=== PATIENT | female | born 1945 | race African-American/Black ===

== ENCOUNTER 2024-06-05 02:18 | Observation (INO) | payer MEDICARE, MEDICAID, SELFPAY ==
[2024-06-05] VITALS (54 sets, daily range): BP systolic 115–175; BP diastolic 47–117; PULSE 45–70; RESP 10–24; TEMP 36.4–36.9; O2SAT 93–100; BMI 25.5
--- NOTE | ~2024-06-05 | CT_ITS ---
Clinical Indication: Chest pain, skin wound CT Scan of the Chest with Contrast: Technique: Contiguous sections were acquired throughout the chest after intravenous administration of 75 cc of Omnipaque 350. Dose reduction technique was used on this scan by utilizing automated exposu re control and iterative reconstruction technique. The dose-length product (DLP) was 407.41 mGy-cm. Findings: There is no evidence of any significant mediastinal, hilar or axillary lymphadenopathy. There is no f illing defect in the pulmonary arterial tree to suggest pulmonary embolus. There is no evidence of ao rtic dissection or aneurysm. There is no evidence of pleural or pericardial effusion. The lungs are clear. No pulmonary nodules or infiltrates are noted. Images through the upper abdomen reveal small layering gallstones. There is soft tissue emphysema just superficial to the sternum questionable small tract extending to the skin surface minimal infiltrative changes. 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 There is advanced degenerative spondylosis in the visualized lower cervical spine. Impression: Skin wound and/or sinus tract with soft tissue gas just superficial to the sternum. Correlate with ph ysical exam. No fluid collection or abscess evident. No distinct CT evidence for osteomyelitis. 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 Clear lungs. Cholelithiasis. Reviewed, dictated and finalized at [facility]. [employer] Impression: Skin wound and/or sinus tract with soft tissue gas just superficial to the ster num. Correlate with physical exam. No fluid collection or abscess evident. No d istinct CT evidence for osteomyelitis. 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 Clear lungs. Cholelithiasis.
--- NOTE | 2024-06-05 02:27 | ECG_ITS ---
Test Date: 2024-06-05 02:33:46 Measurements Intervals [place] Rate: 55 P: 72 OR: 212 QRS: -25 QRSD: 98 T: 118 QT: 404 QTc: 390 Interpretive Statements SINUS BRADYCARDIA WITH FIRST DEGREE AV BLOCK POSSIBLE ANTERIOR MYOCARDIAL INFARCTION , OF INDETERMINATE AGE [30 ms Q WAVE IN V3/V4, OR R < 0.2 mV IN V4] No previous ECG available for comparison Electronically Signed On 06-05-2024 18:49:28 METAL RIVET MACHINE OPERATOR by Faith Alvarenga
--- NOTE | 2024-06-05 03:18 | ED_ITS ---
HPI - Wound/Laceration General Chief Complaint: Chest Pain Stated Complaint: chest pain Time Seen by Provider: 06/05/24 02:57 Source: patient, EMS and RN notes reviewed Mode of arrival: EMS History of Present Illness HPI narrative: Patient presents with report of chest pain however upon physical exam she points to a wound located across her chest Which is currently covered by a dressing. She is alert oriented x2 which limits history. She states I want to go home and is in pain/distress. Related Data Home Medications ?Medication ?Instructions ?Recorded ?Confirmed ?Last Taken ?Type acetaminophen 325 mg capsule 325 mg PO Q4H PRN fever or pain 06/05/24 06/05/24 06/04/24 History amlodipine 5 mg tablet 5 mg PO DAILY 06/05/24 06/05/24 06/04/24 History amoxicillin 500 mg tablet 500 mg PO Q8H 06/05/24 06/05/24 06/04/24 History aspirin 81 mg tablet,delayed 81 mg PO DAILY 06/05/24 06/05/24 06/04/24 History release (Adult Aspirin Regimen) brexpiprazole 0.5 mg tablet 0.5 mg PO DAILY 06/05/24 06/05/24 06/04/24 History (Rexulti) buspirone 15 mg tablet 15 mg PO TID 06/05/24 06/05/24 06/04/24 History calcium carb 1,200 mg-mag hydrox 30 ml PO Q6H PRN indigestion 06/05/24 06/05/24 06/04/24 History 270 mg-simeth 80 mg/10 mL oral susp (Mylanta Coat-Cool) dextromethorphan 20 mg-quinidine 1 cap PO DAILY 06/05/24 06/05/24 06/04/24 History 10 mg capsule (Nuedexta) divalproex 125 mg capsule,delayed 250 mg PO BID 06/05/24 06/05/24 06/04/24 History release sprinkle escitalopram oxalate 20 mg tablet 20 mg PO DAILY 06/05/24 06/05/24 06/04/24 History furosemide 20 mg tablet 20 mg PO DAILY 06/05/24 06/05/24 06/04/24 History gabapentin 100 mg capsule 200 mg PO Q12H 06/05/24 06/05/24 06/04/24 History guaifenesin 100 mg/5 mL oral 100 mg PO Q6H PRN congestion 06/05/24 06/05/24 06/04/24 History liquid (Adult Tussin Chest Congestion) hydralazine 50 mg tablet 50 mg PO TID 06/05/24 06/05/24 06/04/24 History insulin glargine-yfgn 100 unit/mL 5 unit subcut QPM 06/05/24 06/05/24 06/04/24 History subcutaneous solution insulin lispro 100 unit/mL See Protocol subcut QID 06/05/24 06/04/24 History subcutaneous pen lactase 3,000 unit tablet (Dairy 3,000 unit PO DAILY 06/05/24 06/05/24 06/04/24 History Relief) latanoprost 0.005 % eye drops 1 drp EACH EYE DAILY 06/05/24 06/05/24 06/04/24 History levothyroxine 100 mcg tablet 100 mcg PO QAM 06/05/24 06/05/24 06/04/24 History lidocaine HCl 2 % mucosal solution 5 ml mucous membrane Q1-2H PRN pain 06/05/24 06/05/24 06/04/24 History (Lidocaine Viscous) metoprolol tartrate 25 mg tablet 25 mg PO BID 06/05/24 06/05/24 06/04/24 History multivitamin (Daily Multi-Vitamin 1 tablet PO DAILY 06/05/24 06/05/24 06/04/24 History tablet) omeprazole 20 mg capsule,delayed 20 mg PO DAILY 06/05/24 06/05/24 06/04/24 History release ondansetron 4 mg disintegrating 4 mg PO Q6H PRN nausea and vomiting 06/05/24 06/05/24 06/04/24 History tablet oxybutynin chloride 5 mg tablet 5 mg PO QHS 06/05/24 06/05/24 06/04/24 History tramadol 50 mg tablet 50 mg PO QHS 06/05/24 06/05/24 06/04/24 History Allergies Allergy/AdvReac Type Severity Reaction Status Date / Time glyburide Allergy Intermediate hives Verified 06/05/24 15:56 Pyrazolones Allergy Intermediate Hives Verified 06/05/24 15:56 salicylates Allergy Mild Hives Verified 06/05/24 15:56 nsaids Allergy Intermediate Hives Uncoded 06/05/24 15:56 [facility] Past Medical History Medical History Hypothyroidism DM2 (diabetes mellitus, type 2) Incontinence Cholestasis Pulmonary hypertension Myocardial infarction Hyperlipidemia Essential (primary) hypertension Type 2 diabetes mellitus with hyperglycemia Other dental procedure status tooth extraction Atherosclerotic heart disease of [place] coronary artery without angina pectoris Surgical History Surgical History S/P CABG x 2 Social History Social History Social History: Full Code per alf documentation Smoking status: Unknown if ever smoked Alcohol intake: unknown Substance use: unknown Living arrangements: alf Additional living arrangements comments: [facility] [place] Spiritual care concerns: No (Hinduism) Exam 2 Narrative: GENERAL: Well-appearing, well-nourished, in mild acute distress. HEAD: Normocephalic, atraumatic. EYES: Non injected, non icteric ENT: Nares clear, no rhinorrhea or epistaxis. Dry mucous membranes. NECK: Supple. CHEST: Speaking in full sentences. No respiratory distress. Large pendulous breasts HEART: Bradycardic rate and rhythm. . ABDOMEN: Soft, nondistended. EXTREMITIES: Normal range of motion. No lower extremity edema. SKIN: Warm, dry. Large wound along superficial mid chest overlying sternum with deep sinus tract cranial/caudally. wound extends more superficially along medial bilateral breath as well as into inframammary crease. Wound is malodorous and with drainage. Unstageable. NEURO: No focal deficits. Alert and oriented to self. Course Vital Signs Vital signs: Vital Signs Temperature 98.5 F 06/05/24 02:15 Pulse Rate 57 L 06/05/24 02:15 Respiratory Rate 20 06/05/24 02:15 Blood Pressure 152/66 H 06/05/24 02:15 Pulse Oximetry 99 06/05/24 02:15 Oxygen Delivery Room Air 06/05/24 02:15 Temperature 97.8 F 06/06/24 06:00 Pulse Rate 55 L 06/06/24 08:34 Respiratory Rate 20 06/06/24 06:00 Blood Pressure 144/47 H 06/06/24 06:00 Pulse Oximetry 99 06/06/24 06:00 Oxygen Delivery Room Air 06/05/24 20:00 MDM - Wound/Laceration MDM Narrative Medical decision making narrative: patient presents report of chest pain however this does not appear to be cardiac in nature but rather she points directly to a wound overlying her anterior chest at the midsternum which is draining malodorous fluid and has a deep tract renally cause/caudally with extension along medial aspect of bilateral breasts as well as in the inframammary crease. In the emergency department she is afebrile with vital signs that show mild bradycardia and slight elevated diastolic blood pressure. Normocytic anemia. No prior for comparison. Wound cultures obtained. patient given IV fluids as well as analgesic medication. CT imaging obtained which does demonstrate extension to bony structures and is without evidence of contiguous osteomyelitis. Discussed with on-call hospitalist Dr Giron who requests consultation with general surgery. Discussed with etch operator semiconductor wafers surgeon Dr Mane who states can be consulted. Inquires about if her diabetes is well controlled or not. No / limited history on this patient so HA1C ordered. Discussed again with Dr Giron. Patient will be to a gen med/surg floor. Lab Data Attestation: I reviewed the patient's lab results. 06/06/24 06:49 06/06/24 06:49 Labs: Lab Results 06/05/24 Range/Units 04:01 WBC 7.1 (4.5-10.0) K/mm3 RBC 3.53 L (4.2-5.4) M/mm3 Hgb 10.7 L (12.0-15.0) g/dL Hct 32.9 L (37.0-47.0) % MCV 93.2 (80-100) fl MCH 30.3 (26-34) pg MCHC 32.5 (32-36) g/dl RDW 11.8 (11.5-14.5) % Plt Count 219 (150-375) k/mm3 MPV 11.2 H (7.4-10.4) fl Immature Gran % (Auto) 0.3 (0-0.5) % Neut % (Auto) 61.3 (45.5-73.1) % Lymph % (Auto) 28.7 (18.3-44.2) % [place] % (Auto) 8.5 (2.6-8.5) % Eos % (Auto) 0.8 (0-4.4) % Baso % (Auto) 0.4 (0.2-1.2) % Lymph # (Auto) 2.04 (0.9-3.2) K/mm3 [place] # (Auto) 0.6 (0.1-0.6) K/mm3 Eos # (Auto) 0.1 (0-0.3) K/mm3 Baso # (Auto) 0.0 (0.0-0.1) K/mm3 Abs Immat Gran (auto) 0.02 (0.00-0.031) K/mm3 Absolute Neuts (auto) 4.4 (1.3-6.7) K/mm3 Absolute Nucleated RBC 0.000 (0.0-0.012) K/mm3 Nucleated RBC % 0.0 (0.0-0.2) % Sodium 138 (137-145) mmol/L Potassium 3.0 L (3.4-5.0) mmol/L Chloride 110 H (98-107) mmol/L Carbon Dioxide 26 (22-30) mmol/L Anion Gap 2 L (4-12) mmol/L BUN 8 (7-17) mg/dL Creatinine 0.50 L (0.7-1.0) mg/dL Estim Creat Clear Calc 84 ml/min Estimated GFR > 60 (59 - ) Glucose 157 H (65-110) mg/dL Lactic Acid 1.7 (0.7-2.0) mmol/L Calcium 8.0 L (8.4-10.2) mg/dL Magnesium 1.8 (1.6-2.3) mg/dL Total Bilirubin 0.7 (0.2-1.3) mg/dL AST 17 (14-36) U/L ALT 9 (6-35) U/L Alkaline Phosphatase 68 (38-126) U/L Total Protein 7.0 (6.3-8.2) g/dL Albumin 3.1 L (3.5-5.1) g/dL Imaging Data Radiologist's impression: Skin wound and/or sinus tract with soft tissue gas just superficial to the sternum. Correlate with physical exam. No fluid collection or abscess evident. No distinct CT evidence for osteomyelitis. 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 Clear lungs. Cholelithiasis. ECG Data EKG #1: Attestation: I personally reviewed and interpreted this ECG as follows: ECG completion date: 06/05/24 ECG completion time: 02:33 Interpretation: Sinus bradycardia at a rate of 55 beats per minute. IL interval 212. QRS 98. QT/ QTC 404/394. Discharge Plan Discharge Clinical Impression: Wound of sternal region, Normocytic anemia, Hypokalemia Patient Disposition: Still a Patient Condition: Guarded Prognosis
[2024-06-05] MEDS: Please add drug allergy info to patient profile. 1 EACH XX (03:57)
[2024-06-05] MEDS: SODIUM CHLORIDE 0.9% IV 1,000 ML 999 ML IV CONT (03:58)
[2024-06-05] MEDS: MORPHINE SULFATE (*CRX) 4 MG/ML INJ IV PUSH (03:59)
[2024-06-05 04:09] LABS: Basophils Percent Auto 0.4 % (0.2-1.2); Eosinophils Absolute Auto 0.1 K/mm3 (0-0.3); Eosinophils Percent Auto 0.8 % (0-4.4); Hematocrit 32.9 % (37.0-47.0); Hemoglobin 10.7 g/dL (12.0-15.0); Immature Granulocyte Absolute 0.02 K/mm3 (0.00-0.031); Immature Granulocyte Percent A 0.3 % (0-0.5); Lymphocytes Absolute Auto 2.04 K/mm3 (0.9-3.2); Lymphocytes Percent Auto 28.7 % (18.3-44.2); Mean Corpuscular HGB Conc 32.5 g/dl (32-36); Mean Corpuscular Hemoglobin 30.3 pg (26-34); Mean Corpuscular Volume 93.2 fl (80-100); Mean Platelet Volume 11.2 fl (7.4-10.4); Monocytes Absolute Auto 0.6 K/mm3 (0.1-0.6); Monocytes Percent Auto 8.5 % (2.6-8.5); Neutrophils Absolute Auto 4.4 K/mm3 (1.3-6.7); Neutrophils Percent Auto 61.3 % (45.5-73.1); Platelet Count Result 219 k/mm3 (150-375); Red Blood Count 3.53 M/mm3 (4.2-5.4); Red Cell Distribution Width 11.8 % (11.5-14.5); White Blood Count 7.1 K/mm3 (4.5-10.0)
[2024-06-05 04:26] LABS: Alanine Aminotransferase 9 U/L (6-35); Albumin Level 3.1 g/dL (3.5-5.1); Alkaline Phosphatase 68 U/L (38-126); Anion Gap 2 mmol/L (4-12); Aspartate Amino Transferase 17 U/L (14-36); Bilirubin,Total 0.7 mg/dL (0.2-1.3); Blood Urea Nitrogen 8 mg/dL (7-17); Carbon Dioxide 26 mmol/L (22-30); Chloride 110 mmol/L (98-107); Estimated CRCL calculation 84 ml/min; Estimated Glomerular Filt Rate > 60; Glucose 157 mg/dL (65-110); Lactic Acid Reflex 1.7 mmol/L (0.7-2.0); Sodium 138 mmol/L (137-145)
--- NOTE | 2024-06-05 04:54 | PC.NURSE ---
pure wick placed after pt returned from ct. Lab contacted for magnesium add on.
[2024-06-05 05:03] LABS: Magnesium 1.8 mg/dL (1.6-2.3)
[2024-06-05] MEDS: KCL 20 MEQ/SW 100 ML 100 ML 50 MEQ IVPB (05:27)
[2024-06-05] MEDS: POTASSIUM BICARBONATE 25 MEQ TABEF 50 MEQ PO (05:27)
[2024-06-05] MEDS: SODIUM CHLORIDE 0.9% IV 1,000 ML 100 ML (05:27)
[2024-06-05] MEDS: VANCOMYCIN 1,500 MG/NS 500 ML 1,500 MG/500 ML BAG 250 MG IVPB ×2 (08:07→19:35)
--- NOTE | 2024-06-05 08:45 | ADMGEN ---
This patient, Chely Joy, was admitted to -. Patient/family oriented to hospital policies and general routines including ID bracelet, bed and alarms, visiting hours, pain management, procedures, bathroom and other care routines, personal items, smoking policy, room service/diet, and visiting hours. Information on how to activate the Rapid Response Team has been discussed. Patient/Family are encouraged to report perceived risks to care and to ask questions if they do not understand what they are told or what they should do.
--- NOTE | 2024-06-05 09:54 | PC.NURSE ---
JOSE ELIAS Zurita at [facility] at [facility], notified per telephone of request for medical records and current medication list. Fax number provided.
--- NOTE | 2024-06-05 12:13 | P.HP_ITS ---
H&P: HPI History of Present Illness Date/Time: 06/05/24 12:13 Chief Complaint: Chest Pain Narrative: 79 y/o F presents here with chest pain with PMH of angina, CABG x2, HLD, HTN, myocardial infarction, CAD, pulmonary hypertension, cholestasis, incontinence, arthritis, type 2 diabetes, hypothyroidism, and glaucoma. The patient presents here from [facility] via EMS for further evaluation of chest pain. The patient has a wound/ulceration to her sternum measuring approximately 3 x 4 cm, shallow. Wound initially developed after she had heart surgery at [facility]. The patient reports this has been present for the past 8 years. She reports no recent change to the wound. She reports the chest pain felt different than her usual discomfort with her wound. When asked to further describe the pain she is now stating that she didn't have chest pain and she was transported here because she had clear drainage from her eyes, none present. Now stating she feels improved and fine like she could go home. Denies fever, chills, body aches, shortness of breath, diaphoresis, nausea/vomiting. Patient is poor historian, currently A/Ox self, place. Incorrect year given and poor/unreliable situational recall. Initial VS at presentation: 98.5? F, HR 57, RR 20, 152/66, and 99% on RA. ED workup showed: No leukocytosis, hemoglobin 10.7 (no previous available for comparison), potassium 3.0, creatinine 0.5 and GFR >60, glucose 157, A1c 7.0, lactic 1.7. Chest CT showed a skin wound and/or sinus tract with soft tissue gas just superficial to the sternum, no fluid collection or abscess evident, no distinct evidence of osteomyelitis. Review of Systems Review of Systems: All systems reviewed & are unremarkable except as noted in HPI and below (Patient unreliable historian) [facility] Past Medical History Medical History Hypothyroidism DM2 (diabetes mellitus, type 2) Incontinence Cholestasis Pulmonary hypertension Myocardial infarction Hyperlipidemia Essential (primary) hypertension Type 2 diabetes mellitus with hyperglycemia Other dental procedure status tooth extraction Atherosclerotic heart disease of [place] coronary artery without angina pectoris Surgical History Surgical History S/P CABG x 2 Social History Social History Social History: Full Code per care home documentation Smoking status: Unknown if ever smoked Alcohol intake: unknown Substance use: unknown Living arrangements: care home Additional living arrangements comments: [facility] [place] Spiritual care concerns: No (Moravian) Meds Home Medications and Allergies Home Medications ?Medication ?Instructions ?Recorded ?Confirmed ?Type acetaminophen 325 mg capsule 325 mg PO Q4H PRN fever or pain 06/05/24 06/05/24 History amlodipine 5 mg tablet 5 mg PO DAILY 06/05/24 06/05/24 History amoxicillin 500 mg tablet 500 mg PO Q8H 06/05/24 06/05/24 History aspirin 81 mg tablet,delayed 81 mg PO DAILY 06/05/24 06/05/24 History release (Adult Aspirin Regimen) brexpiprazole 0.5 mg tablet 0.5 mg PO DAILY 06/05/24 06/05/24 History (Rexulti) buspirone 15 mg tablet 15 mg PO TID 06/05/24 06/05/24 History calcium carb 1,200 mg-mag hydrox 30 ml PO Q6H PRN indigestion 06/05/24 06/05/24 History 270 mg-simeth 80 mg/10 mL oral susp (Mylanta Coat-Cool) dextromethorphan 20 mg-quinidine 1 cap PO DAILY 06/05/24 06/05/24 History 10 mg capsule (Nuedexta) divalproex 125 mg capsule,delayed 250 mg PO BID 06/05/24 06/05/24 History release sprinkle escitalopram oxalate 20 mg tablet 20 mg PO DAILY 06/05/24 06/05/24 History furosemide 20 mg tablet 20 mg PO DAILY 06/05/24 06/05/24 History gabapentin 100 mg capsule 200 mg PO Q12H 06/05/24 06/05/24 History guaifenesin 100 mg/5 mL oral 100 mg PO Q6H PRN congestion 06/05/24 06/05/24 History liquid (Adult Tussin Chest Congestion) hydralazine 50 mg tablet 50 mg PO TID 06/05/24 06/05/24 History insulin glargine-yfgn 100 unit/mL 5 unit subcut QPM 06/05/24 06/05/24 History subcutaneous solution insulin lispro 100 unit/mL See Protocol subcut QID 06/05/24 History subcutaneous pen lactase 3,000 unit tablet (Dairy 3,000 unit PO DAILY 06/05/24 06/05/24 History Relief) latanoprost 0.005 % eye drops 1 drp EACH EYE DAILY 06/05/24 06/05/24 History levothyroxine 100 mcg tablet 100 mcg PO QAM 06/05/24 06/05/24 History lidocaine HCl 2 % mucosal solution 5 ml mucous membrane Q1-2H PRN pain 06/05/24 06/05/24 History (Lidocaine Viscous) metoprolol tartrate 25 mg tablet 25 mg PO BID 06/05/24 06/05/24 History multivitamin (Daily Multi-Vitamin 1 tablet PO DAILY 06/05/24 06/05/24 History tablet) omeprazole 20 mg capsule,delayed 20 mg PO DAILY 06/05/24 06/05/24 History release ondansetron 4 mg disintegrating 4 mg PO Q6H PRN nausea and vomiting 06/05/24 06/05/24 History tablet oxybutynin chloride 5 mg tablet 5 mg PO QHS 06/05/24 06/05/24 History tramadol 50 mg tablet 50 mg PO QHS 06/05/24 06/05/24 History Allergies Allergy/AdvReac Type Severity Reaction Status Date / Time glyburide Allergy Intermediate hives Verified 06/05/24 15:56 Pyrazolones Allergy Intermediate Hives Verified 06/05/24 15:56 salicylates Allergy Mild Hives Verified 06/05/24 15:56 nsaids Allergy Intermediate Hives Uncoded 06/05/24 15:56 Vital Signs Vital Signs - 24 hr 06/05/24 02:15 06/05/24 02:15 06/05/24 02:15 Temperature 98.5 F Pulse Rate 57 L 57 L Respiratory Rate 20 Blood Pressure 152/66 H Pulse Oximetry 99 100 Oxygen Delivery Room Air Room Air 06/05/24 02:15 06/05/24 02:23 06/05/24 02:30 Temperature Pulse Rate 57 L 57 L 59 L Respiratory Rate 14 15 18 Blood Pressure 140/58 L Pulse Oximetry 100 99 99 Oxygen Delivery 06/05/24 02:31 06/05/24 02:45 06/05/24 02:46 Temperature Pulse Rate 58 L 56 L 54 L Respiratory Rate 19 14 15 Blood Pressure 170/70 H 163/61 H Pulse Oximetry 100 98 98 Oxygen Delivery 06/05/24 03:00 06/05/24 03:01 06/05/24 03:15 Temperature Pulse Rate 55 L 54 L 57 L Respiratory Rate 12 13 10 L Blood Pressure 147/60 H Pulse Oximetry 98 Oxygen Delivery 06/05/24 03:18 06/05/24 03:20 06/05/24 03:20 Temperature Pulse Rate 57 L 54 L Respiratory Rate 18 Blood Pressure 140/58 L Pulse Oximetry 100 Oxygen Delivery Room Air 06/05/24 03:30 06/05/24 03:31 06/05/24 03:45 Temperature Pulse Rate 59 L 55 L 45 L Respiratory Rate 16 24 H 10 L Blood Pressure 156/53 H Pulse Oximetry 100 100 100 Oxygen Delivery 06/05/24 03:46 06/05/24 04:00 06/05/24 04:01 Temperature Pulse Rate 56 L 52 L 56 L Respiratory Rate 17 13 14 Blood Pressure 134/59 L 156/63 H Pulse Oximetry 100 100 100 Oxygen Delivery 06/05/24 04:15 06/05/24 04:17 06/05/24 04:50 Temperature Pulse Rate 48 L 47 L 67 Respiratory Rate 13 12 17 Blood Pressure 156/59 H 157/117 H Pulse Oximetry 98 99 98 Oxygen Delivery 06/05/24 04:51 06/05/24 05:00 06/05/24 05:01 Temperature Pulse Rate 68 66 65 Respiratory Rate 12 11 L 16 Blood Pressure 115/53 L Pulse Oximetry 100 Oxygen Delivery 06/05/24 05:15 06/05/24 05:16 06/05/24 05:30 Temperature Pulse Rate 62 56 L 65 Respiratory Rate 15 11 L 20 Blood Pressure 127/47 L Pulse Oximetry 98 100 98 Oxygen Delivery 06/05/24 05:31 06/05/24 05:45 06/05/24 05:47 Temperature Pulse Rate 60 56 L 49 L Respiratory Rate 15 14 17 Blood Pressure 137/52 L 148/86 H Pulse Oximetry 94 Oxygen Delivery 06/05/24 06:00 06/05/24 06:02 06/05/24 06:15 Temperature Pulse Rate 56 L 56 L 56 L Respiratory Rate 16 17 15 Blood Pressure 135/60 Pulse Oximetry Oxygen Delivery 06/05/24 06:16 06/05/24 06:17 06/05/24 06:30 Temperature Pulse Rate 58 L 55 L 56 L Respiratory Rate 14 16 Blood Pressure 139/113 H Pulse Oximetry Oxygen Delivery 06/05/24 06:31 06/05/24 06:45 06/05/24 06:46 Temperature Pulse Rate 50 L 54 L 54 L Respiratory Rate 14 15 20 Blood Pressure 150/58 H 145/62 H Pulse Oximetry Oxygen Delivery 06/05/24 07:00 06/05/24 07:01 06/05/24 07:15 Temperature Pulse Rate 60 61 51 L Respiratory Rate 12 12 14 Blood Pressure 160/65 H Pulse Oximetry Oxygen Delivery 06/05/24 07:16 06/05/24 07:30 06/05/24 07:31 Temperature Pulse Rate 55 L 62 61 Respiratory Rate 12 19 23 H Blood Pressure 146/69 H 167/75 H Pulse Oximetry 96 95 Oxygen Delivery 06/05/24 07:45 06/05/24 07:46 06/05/24 08:00 Temperature Pulse Rate 55 L 60 47 L Respiratory Rate 11 L 13 12 Blood Pressure 175/68 H Pulse Oximetry 99 99 Oxygen Delivery 06/05/24 08:01 06/05/24 08:15 06/05/24 08:17 Temperature Pulse Rate 47 L 54 L 59 L Respiratory Rate 14 15 18 Blood Pressure 165/62 H 167/56 H Pulse Oximetry 98 98 Oxygen Delivery 06/05/24 09:24 06/05/24 10:08 Temperature Pulse Rate Respiratory Rate Blood Pressure Pulse Oximetry 93 Oxygen Delivery Room Air Room Air Exam Narrative: Hyperactive BS in all quads. no edema. old scarring to sternum. Const: Other: , obese body habitus, female, nontoxic appearance, modestly disheveled HENMT: Face/Nose/Sinus: Normal nares present Mouth: Yes moist mucous membranes Eyes: General: appearance normal, both eyes and all related structures Sclera: sclerae normal Pupils: Equal, round and reactive pupils present EOM: EOMs intact bilaterally Chest: Other: Open wound to chest with surrounding hypopigmentation, see skin assessment. Resp: Effort & Inspection: normal respiratory effort Auscultation: clear to auscultation bilaterally Cardio: Rate: regular rate Rhythm: regular rhythm Other: S1-S2 present without murmur, rub, ectopy GI: Other: Abdomen soft, nondistended, nontender. Hyperactive bowel sounds in all quadrants. Skin: General skin exam: normal color and no rashes or lesions noted Wounds: wounds noted Other: Small open wound to midsternal chest just distal to medial breast fold. Surrounding hypopigmentation. Measuring approximately 3 x 4 cm, shallow. New dressing in place, patent. No overt odor. Neuro: Speech: normal speech Sensory Exam: normal sensation Other: Patient moving all extremities. A&O times self, place. Incorrect year provided and poor situational history given. Extrem: General: normal to inspection Psych: Mental Status: mental status grossly normal Affect: normal affect Other: Fair to poor insight and judgment, pleasant H&P: Results Labs Labs: Short CBC 06/05/24 Range/Units 04:01 WBC 7.1 (4.5-10.0) K/mm3 Hgb 10.7 L (12.0-15.0) g/dL Hct 32.9 L (37.0-47.0) % Plt Count 219 (150-375) k/mm3 BMP 06/05/24 04:01 Sodium 138 Potassium 3.0 L Chloride 110 H Carbon Dioxide 26 BUN 8 Creatinine 0.50 L Glucose 157 H Calcium 8.0 L Liver Function 06/05/24 Range/Units 04:01 Total Bilirubin 0.7 (0.2-1.3) mg/dL AST 17 (14-36) U/L ALT 9 (6-35) U/L Alkaline Phosphatase 68 (38-126) U/L Albumin 3.1 L (3.5-5.1) g/dL Assessment and Plan Assessment and plan (1) Wound of sternal region: Code(s): S21.109A - Unspecified open wound of unspecified front wall of thorax without penetration into thoracic cavity, initial encounter Status: Acute Assessment and Plan: - did not meet SIRS criteria. Blood cultures obtained in ED, follow. - Chest CT 1. Skin wound and/or sinus tract with soft tissue gas just superficial to the sternum. Correlate with physical exam. No fluid collection or abscess evident. No distinct CT evidence for osteomyelitis. 2. 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 3. Clear lungs. 4. Cholelithiasis. - WBC 7.1, lactic 1.7 - wound culture and fungal culture obtained, follow - started on vancomycin on 06/05 - general surgery consulted, awaiting formal recs - wound RN consulted - analgesics prn - trend wbc (2) Chest pain: Qualifiers: Chest pain type: unspecified Qualified Code(s): R07.9 - Chest pain, unspecified Code(s): R07.9 - Chest pain, unspecified Status: Acute Assessment and Plan: Initially reporting chest pain, now denying this is why she was brought into the hospital. Does have chronic wound to midsternal chest, present for the past 8 years, see above. No active chest pain at this time. - chest CT performed, CT read above - EKG, initial: Sinus bradycardia with first-degree AV block, possible anterior AL of indeterminate age, rate 55. Awaiting formal read - trend troponins (3) Normocytic anemia: Code(s): D64.9 - Anemia, unspecified Status: Acute Assessment and Plan: - Hgb 10.7, no previous available for comparison - MCV and MCHC within normal limits - add iron, TIBC, ferritin, B12, folic acid, and TSH - transfuse if <7 - trend (4) Hypokalemia: Code(s): E87.6 - Hypokalemia Status: Acute Assessment and Plan: - K 3.0 - initial repletion with: 50 p.o. potassium bicarbonate, 20 IVPB of KCl - monitor (5) DM2 (diabetes mellitus, type 2): Qualifiers: Diabetes mellitus custodial insulin use: with manager long term care use Diabetes mellitus complication status: without complication Qualified Code(s): E11.9 - Type 2 diabetes mellitus without complications; Z79.4 - rodent exterminator (current) use of insulin Code(s): E11.9 - Type 2 diabetes mellitus without complications Status: Chronic Assessment and Plan: - hypoglycemia protocol - POC blood glucose ACHS - home medication: Lantus 5u HS - correct regimen ordered - low dose TIDWM, based off BMI - A1C 7.0 on 06/05/2024 (6) Essential (primary) hypertension: Code(s): I10 - Essential (primary) hypertension Status: Chronic Assessment and Plan: - chronic, currently 167/56 - continue home medications: amlodipine 5 mg daily, hydralazine 50 mg t.i.d., metoprolol 25 mg BID - monitor Plan Diet: Diabetic GI Prophylaxis: Not currently indicated DVT Prophylaxis: Lovenox subQ Lines: Peripheral Code Status: Full code Quality VTE Prophylaxis VTE prophylaxis: pharmacologic ordered Hospitalist MIPS Advance Care Plan I have confirmed that the patient's Advanced Care Plan is present, code status is documented, or surrogate decision maker is listed in patient medical record.: Yes Medication Reconciliation I have utilized all available resources to obtain, update and review the patients current medications (includes all prescriptions, OTC, herbals, cannabis, and nutritional supplements).: Yes
[2024-06-05] MEDS: amLODIPine BESYLATE 5 MG TABLET PO (13:02)
[2024-06-05] MEDS: GABAPENTIN 100 MG CAPSULE 200 MG PO ×2 (13:03→20:25)
[2024-06-05] MEDS: hydrALAZINE HCL 50 MG TABLET PO ×2 (13:04→16:20)
[2024-06-05] MEDS: busPIRone HCL 5 MG TABLET 15 MG PO ×2 (13:04→16:20)
[2024-06-05] MEDS: LATANOPROST 0.005% OP SOLN 2.5 ML BTL 1 DROP EACH EYE (13:22)
--- NOTE | 2024-06-05 13:45 | P.CONGS_ITS ---
Assessment and Plan Assessment and plan (1) Wound of sternal region: Code(s): S21.109A - Unspecified open wound of unspecified front wall of thorax without penetration into thoracic cavity, initial encounter Status: Acute Assessment and Plan: The patient has a very chronic appearing mid sternal wound that is beneath the skin fold of her breasts. It is unclear how this wound originated, but it has clearly been present for some time. There is some granulating tissue and epithelialization around the edges of the wound. This wound does not appear infected. There is no redness around the wound and no purulent drainage on exam. There is no indication for surgical intervention. We would recommend to continue local wound care with packing dressing changes. The packing may be slightly difficult, as you have to hold up both breasts to properly pack the large area of undermining. This may need to be taught to staff at the facility prior to discharge. I have called her emergency contact, but this is an appointed guardian as she is a dunn of the [facility]. They were unable to provide any surgical history of additional information in regards to the wound. I have also tried calling [facility] for additional history but was unsuccessful in reaching any staff that could provide information. (2) Chest pain: Code(s): R07.9 - Chest pain, unspecified Status: Acute Assessment and Plan: This was the reason the patient was brought to the ED. Difficult to obtain details of her chest pain due to her dementia. She is no longer complaining of any chest pain, although it seems her wound is slightly tender. Management per Hospitalist. (3) DM2 (diabetes mellitus, type 2): Code(s): E11.9 - Type 2 diabetes mellitus without complications Status: Chronic (4) Essential (primary) hypertension: Code(s): I10 - Essential (primary) hypertension Status: Chronic (5) Hypokalemia: Code(s): E87.6 - Hypokalemia Status: Acute Assessment and Plan: Potassium 3.0 on admission and was replaced in the ED. (6) Normocytic anemia: Code(s): D64.9 - Anemia, unspecified Status: Acute Assessment and Plan: Hgb 10.7 on admission with no other labs for comparison in our EMR. Management per Hospitalist. Plan I have discussed the patient's case and plan of care with Dr. Mane. Thank you for allowing us to see the patient in consultation. History of Present Illness Consult details Consult date: 06/05/24 Reason for consult: other (Chest wound) Requesting physician: Oksana Flannery MD Narrative: This is an 79-year-old female with PMH of DM2, CAD, HTN, hypothyroidism, and dementia, who resides at [facility]. She is a poor historian due to her dementia, therefore information is obtained by review of the electronic medical record. We have been asked to see the patient in surgical consultation for a chest wound. She was apparently brought into the ED via EMS from the skilled nursing due to chest pain. Labs showed no leukocytosis and lactic acid 1.7. Hemoglobin A1c 7.0. She was found to have a wound on her midsternal chest. She had a chest CT that showed skin wound and/or sinus tract with soft tissue gas just superficial to the sternum, no fluid collection or abscess evident, no distinct CT evidence for osteomyelitis, and incidental findings of cholelithiasis. The patient was admitted. She is now seen on the medical floor with no family at the bedside. I contacted her emergency contact, which is her appointed guardian as she is a dunn of the [facility]. The guardian was recently a pointed to the patient and is unable to verify any surgical history in regards to her chest wound. CT scan showed no sternotomy wires. Wound Care has also been consulted and is at the bedside seeing the patient at the time of my exam with Dr. Mane. The patient is denying any pain at this time. 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 Surgical History Surgical History S/P CABG x 2 Social History Social History Social History: Full Code per skilled nursing documentation Smoking status: Unknown if ever smoked Alcohol intake: unknown Substance use: unknown Living arrangements: skilled nursing Additional living arrangements comments: [facility] Spiritual care concerns: No (Church) Meds Home Medications and Allergies Home Medications ?Medication ?Instructions ?Recorded ?Confirmed ?Type acetaminophen 325 mg capsule 325 mg PO Q4H PRN fever or pain 06/05/24 06/05/24 History amlodipine 5 mg tablet 5 mg PO DAILY 06/05/24 06/05/24 History amoxicillin 500 mg tablet 500 mg PO Q8H 06/05/24 06/05/24 History aspirin 81 mg tablet,delayed 81 mg PO DAILY 06/05/24 06/05/24 History release (Adult Aspirin Regimen) brexpiprazole 0.5 mg tablet 0.5 mg PO DAILY 06/05/24 06/05/24 History (Rexulti) buspirone 15 mg tablet 15 mg PO TID 06/05/24 06/05/24 History calcium carb 1,200 mg-mag hydrox 30 ml PO Q6H PRN indigestion 06/05/24 06/05/24 History 270 mg-simeth 80 mg/10 mL oral susp (Mylanta Coat-Cool) dextromethorphan 20 mg-quinidine 1 cap PO DAILY 06/05/24 06/05/24 History 10 mg capsule (Nuedexta) divalproex 125 mg capsule,delayed 250 mg PO BID 06/05/24 06/05/24 History release sprinkle escitalopram oxalate 20 mg tablet 20 mg PO DAILY 06/05/24 06/05/24 History furosemide 20 mg tablet 20 mg PO DAILY 06/05/24 06/05/24 History gabapentin 100 mg capsule 200 mg PO Q12H 06/05/24 06/05/24 History guaifenesin 100 mg/5 mL oral 100 mg PO Q6H PRN congestion 06/05/24 06/05/24 History liquid (Adult Tussin Chest Congestion) hydralazine 50 mg tablet 50 mg PO TID 06/05/24 06/05/24 History insulin glargine-yfgn 100 unit/mL 5 unit subcut QPM 06/05/24 06/05/24 History subcutaneous solution insulin lispro 100 unit/mL See Protocol subcut QID 06/05/24 History subcutaneous pen lactase 3,000 unit tablet (Dairy 3,000 unit PO DAILY 06/05/24 06/05/24 History Relief) latanoprost 0.005 % eye drops 1 drp EACH EYE DAILY 06/05/24 06/05/24 History levothyroxine 100 mcg tablet 100 mcg PO QAM 06/05/24 06/05/24 History lidocaine HCl 2 % mucosal solution 5 ml mucous membrane Q1-2H PRN pain 06/05/24 06/05/24 History (Lidocaine Viscous) metoprolol tartrate 25 mg tablet 25 mg PO BID 06/05/24 06/05/24 History multivitamin (Daily Multi-Vitamin 1 tablet PO DAILY 06/05/24 06/05/24 History tablet) omeprazole 20 mg capsule,delayed 20 mg PO DAILY 06/05/24 06/05/24 History release ondansetron 4 mg disintegrating 4 mg PO Q6H PRN nausea and vomiting 06/05/24 06/05/24 History tablet oxybutynin chloride 5 mg tablet 5 mg PO QHS 06/05/24 06/05/24 History tramadol 50 mg tablet 50 mg PO QHS 06/05/24 06/05/24 History Allergies Allergy/AdvReac Type Severity Reaction Status Date / Time glyburide Allergy Intermediate Rash Verified 06/05/24 03:56 Pyrazolones Allergy Intermediate Hives Verified 06/05/24 03:56 salicylates Allergy Mild Hives Verified 06/05/24 03:56 nsaids Allergy Intermediate Hives Uncoded 06/05/24 03:56 Vital Signs Vital Signs - 24 hr 06/05/24 02:15 06/05/24 02:15 06/05/24 02:15 Temperature 98.5 F Pulse Rate 57 L 57 L Respiratory Rate 20 Blood Pressure 152/66 H Pulse Oximetry 99 100 Oxygen Delivery Room Air Room Air 06/05/24 02:15 06/05/24 02:23 06/05/24 02:30 Temperature Pulse Rate 57 L 57 L 59 L Respiratory Rate 14 15 18 Blood Pressure 140/58 L Pulse Oximetry 100 99 99 Oxygen Delivery 06/05/24 02:31 06/05/24 02:45 06/05/24 02:46 Temperature Pulse Rate 58 L 56 L 54 L Respiratory Rate 19 14 15 Blood Pressure 170/70 H 163/61 H Pulse Oximetry 100 98 98 Oxygen Delivery 06/05/24 03:00 06/05/24 03:01 06/05/24 03:15 Temperature Pulse Rate 55 L 54 L 57 L Respiratory Rate 12 13 10 L Blood Pressure 147/60 H Pulse Oximetry 98 Oxygen Delivery 06/05/24 03:18 06/05/24 03:20 06/05/24 03:20 Temperature Pulse Rate 57 L 54 L Respiratory Rate 18 Blood Pressure 140/58 L Pulse Oximetry 100 Oxygen Delivery Room Air 06/05/24 03:30 06/05/24 03:31 06/05/24 03:45 Temperature Pulse Rate 59 L 55 L 45 L Respiratory Rate 16 24 H 10 L Blood Pressure 156/53 H Pulse Oximetry 100 100 100 Oxygen Delivery 06/05/24 03:46 06/05/24 04:00 06/05/24 04:01 Temperature Pulse Rate 56 L 52 L 56 L Respiratory Rate 17 13 14 Blood Pressure 134/59 L 156/63 H Pulse Oximetry 100 100 100 Oxygen Delivery 06/05/24 04:15 06/05/24 04:17 06/05/24 04:50 Temperature Pulse Rate 48 L 47 L 67 Respiratory Rate 13 12 17 Blood Pressure 156/59 H 157/117 H Pulse Oximetry 98 99 98 Oxygen Delivery 06/05/24 04:51 06/05/24 05:00 06/05/24 05:01 Temperature Pulse Rate 68 66 65 Respiratory Rate 12 11 L 16 Blood Pressure 115/53 L Pulse Oximetry 100 Oxygen Delivery 06/05/24 05:15 06/05/24 05:16 06/05/24 05:30 Temperature Pulse Rate 62 56 L 65 Respiratory Rate 15 11 L 20 Blood Pressure 127/47 L Pulse Oximetry 98 100 98 Oxygen Delivery 06/05/24 05:31 06/05/24 05:45 06/05/24 05:47 Temperature Pulse Rate 60 56 L 49 L Respiratory Rate 15 14 17 Blood Pressure 137/52 L 148/86 H Pulse Oximetry 94 Oxygen Delivery 06/05/24 06:00 06/05/24 06:02 06/05/24 06:15 Temperature Pulse Rate 56 L 56 L 56 L Respiratory Rate 16 17 15 Blood Pressure 135/60 Pulse Oximetry Oxygen Delivery 06/05/24 06:16 06/05/24 06:17 06/05/24 06:30 Temperature Pulse Rate 58 L 55 L 56 L Respiratory Rate 14 16 Blood Pressure 139/113 H Pulse Oximetry Oxygen Delivery 06/05/24 06:31 06/05/24 06:45 06/05/24 06:46 Temperature Pulse Rate 50 L 54 L 54 L Respiratory Rate 14 15 20 Blood Pressure 150/58 H 145/62 H Pulse Oximetry Oxygen Delivery 06/05/24 07:00 06/05/24 07:01 06/05/24 07:15 Temperature Pulse Rate 60 61 51 L Respiratory Rate 12 12 14 Blood Pressure 160/65 H Pulse Oximetry Oxygen Delivery 06/05/24 07:16 06/05/24 07:30 06/05/24 07:31 Temperature Pulse Rate 55 L 62 61 Respiratory Rate 12 19 23 H Blood Pressure 146/69 H 167/75 H Pulse Oximetry 96 95 Oxygen Delivery 06/05/24 07:45 06/05/24 07:46 06/05/24 08:00 Temperature Pulse Rate 55 L 60 47 L Respiratory Rate 11 L 13 12 Blood Pressure 175/68 H Pulse Oximetry 99 99 Oxygen Delivery 06/05/24 08:01 06/05/24 08:15 06/05/24 08:17 Temperature Pulse Rate 47 L 54 L 59 L Respiratory Rate 14 15 18 Blood Pressure 165/62 H 167/56 H Pulse Oximetry 98 98 Oxygen Delivery 06/05/24 09:24 06/05/24 10:08 Temperature Pulse Rate Respiratory Rate Blood Pressure Pulse Oximetry 93 Oxygen Delivery Room Air Room Air Exam 2 Const: General: comfortable and no acute distress Nutritional Appearance: a verage body habitus Orientation/consciousness: confusion (dementia) HENMT: Head: normocephalic and atraumatic Ears: hearing grossly normal bilaterally Eyes: General: appearance normal, both eyes and all related structures P upils: Equal, round and reactive pupils present Neck: Neck: normal visual inspection and full ROM Chest: Other: There is possibly a small scar just superior and to the left of the wound, but no obvious large scars that suggest a recent surgery. There is a larger pink oval-shaped scar of the left breast in the inner lower quadrant. Chest/axillae images: 1. There is a 3 x 4 cm open wound to the midsternal chest that is within a horizontal skin fold below the breasts. By lifting both breasts, the wound is better visualized and appears to have undermining superiorly about 7 cm from 8 - 4 o'clock. The visible base of the wound is pink and healthy with some granulating tissue and along the inferior and lateral aspects of the wound is epithelialized tissue that appears very chronic. There is no foul odor or purulent drainage. The wound and some of the epithelial tissue is directly over the sternum with only a thin layer of tissue overlying the bone. No surrounding erythema. Resp: Effort & Inspection: no respiratory distress Auscultation: clear to auscultation bilaterally Cardio: Rate: regular rate Rhythm: regular rhythm GI: Inspection: non-distended GI Palp: Yes Soft to palpation, No Tenderness to palpation present (GI) and No Guarding due to palpation present (GI) P ercussion: Yes normal to percussion Auscultation: normal bowel sounds Skin: General skin exam: normal color Neuro: General: moves all extremities and no focal motor deficits Extrem: General: normal to inspection and no edema Psych: Attitude: cooperative Insight: Limited insight present (Psych) J udgement: Limited judgement present (Psych) Results Labs 06/05/24 04:01 06/05/24 04:01 Labs: Abnormal lab results 06/05/24 06/05/24 Range/Units 04:01 08:06 RBC 3.53 L (4.2-5.4) M/mm3 Hgb 10.7 L (12.0-15.0) g/dL Hct 32.9 L (37.0-47.0) % MPV 11.2 H (7.4-10.4) fl Potassium 3.0 L (3.4-5.0) mmol/L Chloride 110 H (98-107) mmol/L Anion Gap 2 L (4-12) mmol/L Creatinine 0.50 L (0.7-1.0) mg/dL Glucose 157 H (65-110) mg/dL Hemoglobin A1c 7.0 H (<5.7) % Calcium 8.0 L (8.4-10.2) mg/dL Albumin 3.1 L (3.5-5.1) g/dL Diabetes panel 06/05/24 06/05/24 Range/Units 04:01 08:06 Sodium 138 (137-145) mmol/L Potassium 3.0 L (3.4-5.0) mmol/L Chloride 110 H (98-107) mmol/L Carbon Dioxide 26 (22-30) mmol/L BUN 8 (7-17) mg/dL Creatinine 0.50 L (0.7-1.0) mg/dL Glucose 157 H (65-110) mg/dL Hemoglobin A1c 7.0 H (<5.7) % Calcium 8.0 L (8.4-10.2) mg/dL AST 17 (14-36) U/L ALT 9 (6-35) U/L Alkaline Phosphatase 68 (38-126) U/L Total Protein 7.0 (6.3-8.2) g/dL Albumin 3.1 L (3.5-5.1) g/dL Calcium panel 06/05/24 Range/Units 04:01 Calcium 8.0 L (8.4-10.2) mg/dL Albumin 3.1 L (3.5-5.1) g/dL Pituitary panel 06/05/24 Range/Units 04:01 Sodium 138 (137-145) mmol/L Potassium 3.0 L (3.4-5.0) mmol/L Chloride 110 H (98-107) mmol/L Carbon Dioxide 26 (22-30) mmol/L BUN 8 (7-17) mg/dL Creatinine 0.50 L (0.7-1.0) mg/dL Glucose 157 H (65-110) mg/dL Calcium 8.0 L (8.4-10.2) mg/dL Adrenal panel 06/05/24 Range/Units 04:01 Sodium 138 (137-145) mmol/L Potassium 3.0 L (3.4-5.0) mmol/L Chloride 110 H (98-107) mmol/L Carbon Dioxide 26 (22-30) mmol/L BUN 8 (7-17) mg/dL Creatinine 0.50 L (0.7-1.0) mg/dL Glucose 157 H (65-110) mg/dL Calcium 8.0 L (8.4-10.2) mg/dL Total Bilirubin 0.7 (0.2-1.3) mg/dL AST 17 (14-36) U/L ALT 9 (6-35) U/L Alkaline Phosphatase 68 (38-126) U/L Total Protein 7.0 (6.3-8.2) g/dL Albumin 3.1 L (3.5-5.1) g/dL All other labs normal. Imaging Additional studies: ITS Impressions Chest CT 06/05/24 06:15 Impression: Skin wound and/or sinus tract with soft tissue gas just superficial to the sternum. Correlate with physical exam. No fluid collection or abscess evident. No distinct CT evidence for osteomyelitis. 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 Clear lungs. Cholelithiasis.
[2024-06-05] MEDS: METOPROLOL TARTRATE 25 MG TABLET PO (16:20)
[2024-06-05] MEDS: DIVALPROEX SODIUM SPRINKLE 125 MG CAP.DR 250 MG PO (16:34)
[2024-06-05 16:52] LABS: Glucose Point of Care 228 mg/dl (65-105)
[2024-06-05] MEDS: INSULIN ASPART (*BKC) 100 UNITS/ML SUB-Q (16:55)
[2024-06-05 17:25] LABS: Troponin I < 0.012 ng/mL (0.000-0.034)
[2024-06-05] MEDS: traMADol HCL (*CRX) 50 MG TABLET PO (20:25)
[2024-06-05] MEDS: INSULIN GLARGINE (*BKC) 100 UNITS/ML SUB-Q (20:26)
[2024-06-05] MEDS: oxyBUTYnin CHLORIDE 5 MG TABLET PO (20:26)
[2024-06-05 20:36] LABS: Anion Gap 3 mmol/L (4-12); Blood Urea Nitrogen 7 mg/dL (7-17); Calcium 9.4 mg/dL (8.4-10.2); Carbon Dioxide 31 mmol/L (22-30); Chloride 103 mmol/L (98-107); Estimated CRCL calculation 63 ml/min; Estimated Glomerular Filt Rate > 60; Glucose 145 mg/dL (65-110); Potassium 3.8 mmol/L (3.4-5.0); Sodium 137 mmol/L (137-145)
[2024-06-05 20:39] LABS: Glucose Point of Care 158 mg/dl (65-105)
[2024-06-05 20:49] LABS: Troponin I < 0.012 ng/mL (0.000-0.034)
[2024-06-05 23:52] LABS: Troponin I < 0.012 ng/mL (0.000-0.034)
[2024-06-06 06:00] VITALS: BP 144/47; PULSE 49; RESP 20; TEMP 36.6; O2SAT 99
[2024-06-06] MEDS: LEVOTHYROXINE SODIUM 100 MCG TABLET PO (06:14)
[2024-06-06 07:27] LABS: Basophils Percent Auto 0.5 % (0.2-1.2); Eosinophils Absolute Auto 0.1 K/mm3 (0-0.3); Eosinophils Percent Auto 1.1 % (0-4.4); Hematocrit 36.4 % (37.0-47.0); Hemoglobin 11.4 g/dL (12.0-15.0); Immature Granulocyte Absolute 0.02 K/mm3 (0.00-0.031); Immature Granulocyte Percent A 0.4 % (0-0.5); Lymphocytes Absolute Auto 2.04 K/mm3 (0.9-3.2); Lymphocytes Percent Auto 36.2 % (18.3-44.2); Mean Corpuscular HGB Conc 31.3 g/dl (32-36); Mean Corpuscular Hemoglobin 29.9 pg (26-34); Mean Corpuscular Volume 95.5 fl (80-100); Monocytes Absolute Auto 0.4 K/mm3 (0.1-0.6); Monocytes Percent Auto 7.8 % (2.6-8.5); Neutrophils Absolute Auto 3.1 K/mm3 (1.3-6.7); Platelet Count Result 212 k/mm3 (150-375); Red Blood Count 3.81 M/mm3 (4.2-5.4); Red Cell Distribution Width 11.9 % (11.5-14.5); White Blood Count 5.6 K/mm3 (4.5-10.0)
[2024-06-06 07:41] LABS: Anion Gap 4 mmol/L (4-12); Blood Urea Nitrogen 7 mg/dL (7-17); Calcium 9.8 mg/dL (8.4-10.2); Carbon Dioxide 32 mmol/L (22-30); Chloride 103 mmol/L (98-107); Estimated CRCL calculation 55 ml/min; Estimated Glomerular Filt Rate > 60; Glucose 158 mg/dL (65-110); Potassium 4.3 mmol/L (3.4-5.0); Sodium 139 mmol/L (137-145)
[2024-06-06 08:00] LABS: Glucose Point of Care 144 mg/dl (65-105)
[2024-06-06 08:01] LABS: Iron 72 ug/dL (37-170)
[2024-06-06 08:11] LABS: Percent Iron Saturation 28 % (20-50)
[2024-06-06] MEDS: ENOXAPARIN 40 MG/0.4 ML SYRINGE SUB-Q (08:26)
[2024-06-06] MEDS: VANCOMYCIN 1,500 MG/NS 500 ML 1,500 MG/500 ML BAG 250 MG IVPB (08:27)
[2024-06-06] MEDS: MULTIVITAMINS THERAPEUTIC TAB (*BKC) 1 TABLET PO (08:31)
[2024-06-06] MEDS: FUROSEMIDE 20 MG TABLET PO (08:31)
[2024-06-06] MEDS: ESCITALOPRAM OXALATE 10 MG TABLET 20 MG PO (08:31)
[2024-06-06] MEDS: busPIRone HCL 5 MG TABLET 15 MG PO ×3 (08:32→16:47)
[2024-06-06] MEDS: amLODIPine BESYLATE 5 MG TABLET PO (08:32)
[2024-06-06] MEDS: PANTOPRAZOLE 40 MG TABLET PO (08:32)
[2024-06-06] MEDS: GABAPENTIN 100 MG CAPSULE 200 MG PO ×2 (08:33→22:36)
[2024-06-06] MEDS: DIVALPROEX SODIUM SPRINKLE 125 MG CAP.DR 250 MG PO ×2 (08:33→16:46)
[2024-06-06] MEDS: hydrALAZINE HCL 50 MG TABLET PO ×3 (08:33→16:48)
[2024-06-06 08:34] VITALS: PULSE 55
[2024-06-06] MEDS: METOPROLOL TARTRATE 25 MG TABLET PO ×2 (08:34→16:48)
[2024-06-06] MEDS: LACTASE 3,000 UNIT TABLET 3000 UNIT PO (08:34)
[2024-06-06] MEDS: LATANOPROST 0.005% OP SOLN 2.5 ML BTL 1 DROP EACH EYE (08:35)
[2024-06-06] MEDS: ASPIRIN 81 MG ENTERIC TABLET PO (08:36)
[2024-06-06 08:56] LABS: Folic Acid 7.4 ng/mL (2.76->20)
[2024-06-06 11:58] LABS: Glucose Point of Care 202 mg/dl (65-105)
[2024-06-06 12:16] VITALS: BMI 25.5
[2024-06-06] MEDS: INSULIN ASPART (*BKC) 100 UNITS/ML SUB-Q (12:16)
[2024-06-06 14:00] VITALS: BP 125/45; PULSE 50; RESP 18; TEMP 36.2; O2SAT 100
--- NOTE | 2024-06-06 14:21 | PM.PNGS ---
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 She has dementia and is a dunn of the [facility], so her history is limited. There are no signs of infection of this wound or indication for any surgical intervention. The wound is chronic and stable. She can be discharged back to the custodial when okay with the primary service. She can follow with wound care at the custodial. I spoke with the nurse this morning about how to pack this wound properly and requested that she call the custodial on discharge to educate the staff on her wound care. Will sign off at this time. Call if there are any other surgical questions or concerns. Plan I have discussed the patient's case and plan of care with Dr. Mane. Subjective Subjective Date/Time Seen: 06/06/24 14:21 Interval history: Patient with dementia. No specific complaints. Denies any pain at this time. Exam Narrative: Mid sternal chest wound appears unchanged from yesterday with granulating tissue, I repacked the wound on my exam to get silver rope into the entire wound that involves significant undermining. No purulent drainage. Const: General: comfortable and no acute distress Objective Data Vital Signs Vital Signs: Vital Signs - 24 hr 06/05/24 16:20 06/05/24 20:00 06/05/24 21:06 Temperature 97.5 F L Pulse Rate 70 57 L Respiratory Rate 20 Blood Pressure 126/52 L Pulse Oximetry 99 Oxygen Delivery Room Air 06/06/24 06:00 06/06/24 08:34 Temperature 97.8 F Pulse Rate 49 L 55 L Respiratory Rate 20 Blood Pressure 144/47 H Pulse Oximetry 99 Oxygen Delivery Intake/Output Intake/Output: Intake & Output 06/03/24 06/04/24 06/05/24 06/06/24 23:59 23:59 23:59 23:59 Intake Total 2490 890 Output Total 400 700 Balance 2090 190 Meds/Results Medications: Active Medications Generic Name Dose Route Start Last Admin Trade Name Freq PRN Reason Stop Dose Admin Acetaminophen 650 mg 06/05/24 07:53 Acetaminophen 325 Mg Tablet PO Q4H PRN Mild Pain (1-3) or Fever Hydrocodone Bitart/Acetaminophen 1 tab 06/05/24 12:22 Hydrocodone/Acetaminophen (*Crx) 5-325 Mg Tablet PO Q6H PRN Pain Rated 4-6 Al Hydrox/Mg Hydrox/Simethicone 30 ml 06/05/24 12:49 Mag Hydrox/Al Hydrox/Simeth 30 Ml Udc PO Q6H PRN Indigestion Amlodipine Besylate 5 mg 06/05/24 13:00 06/06/24 08:32 Amlodipine Besylate 5 Mg Tablet PO 5 mg DAILY GUY Administration Aspirin 81 mg 06/06/24 09:00 06/06/24 08:36 Aspirin 81 Mg Enteric Tablet PO 81 mg DAILY GUY Administration Buspirone HCl 15 mg 06/05/24 13:00 06/06/24 12:18 Buspirone Hcl 5 Mg Tablet PO 15 mg TID GUY Administration Dextrose 12.5 gm 06/05/24 12:25 Dextrose 50% 25 Gm/50 Ml Syringe IV PUSH PRN PRN Hypoglycemia Protocol Divalproex Sodium 250 mg 06/05/24 17:00 06/06/24 08:33 Divalproex Sodium Sprinkle 125 Mg Cap.Dr PO 250 mg BID GUY Administration Enoxaparin Sodium 40 mg 06/06/24 09:00 06/06/24 08:26 Enoxaparin 40 Mg/0.4 Ml Syringe SUB-Q 40 mg DAILY GUY Administration Escitalopram Oxalate 20 mg 06/06/24 09:00 06/06/24 08:31 Escitalopram Oxalate 10 Mg Tablet PO 20 mg DAILY GUY Administration Furosemide 20 mg 06/06/24 09:00 06/06/24 08:31 Furosemide 20 Mg Tablet PO 20 mg DAILY GUY Administration Gabapentin 200 mg 06/05/24 12:30 06/06/24 08:33 Gabapentin 100 Mg Capsule PO 200 mg Q12HR GUY Administration Glucagon 1 mg 06/05/24 12:25 Glucagon For Inj 1 Mg Vial IM PRN PRN Hypoglycemia Protocol Glucose 15 gm 06/05/24 12:25 Glucose Oral Gel 15 Gm Of Glucse In 37.5 Gm Tube PO PRN PRN Hypoglycemia Protocol Guaifenesin 100 mg 06/05/24 12:27 Guaifenesin 200 Mg/10 Ml Udc PO Q6H PRN congestion Hydralazine HCl 50 mg 06/05/24 13:00 06/06/24 12:18 Hydralazine Hcl 50 Mg Tablet PO 50 mg TID GUY Administration Vancomycin HCl 1,500 mg in 500 mls @ 250 mls/hr 06/05/24 08:00 06/06/24 10:27 Vancomycin 1,500 Mg/Ns 500 Ml IVPB Infused Q12H GUY Infusion Dextrose 1,000 mls @ 100 mls/hr 06/05/24 12:25 Dextrose 5% 1,000 Ml IVPB PRN PRN Hypoglycemia Protocol Insulin Aspart 2 - 5 units 06/05/24 17:00 06/06/24 12:16 Insulin Aspart (*Bkc) 100 Units/Ml SUB-Q 2 units TIDWM GUY Administration Protocol Insulin Glargine 5 units 06/05/24 21:00 06/05/24 20:26 Insulin Glargine (*Bkc) 100 Units/Ml SUB-Q 5 units HS GUY Administration Lactase 3,000 unit 06/06/24 09:00 06/06/24 08:34 Lactase 3,000 Unit Tablet PO 3,000 unit DAILY GUY Administration Latanoprost 1 drop 06/05/24 14:00 06/06/24 08:35 Latanoprost 0.005% Op Soln 2.5 Ml Btl EACH EYE 1 drop DAILY GUY Administration Levothyroxine Sodium 100 mcg 06/06/24 06:30 06/06/24 06:14 Levothyroxine Sodium 100 Mcg Tablet PO 100 mcg DAILY@0630 GUY Administration Lidocaine HCl 5 ml 06/05/24 12:32 Lidocaine 2% Visc Soln 15 Ml Udc MUCOUS MEM Q1-2H PRN pain Metoprolol Tartrate 25 mg 06/05/24 17:00 06/06/24 08:34 Metoprolol Tartrate 25 Mg Tablet PO 25 mg BID GUY Administration Miscellaneous Information 1 each 06/05/24 00:01 Dextromethorphan-Quinidine [Nuedexta] 20-10 Mg Capsule Nonformulary. Can Patient Use From XX 07/05/24 00:00 [facility] Miscellaneous Information 1 each 06/05/24 00:01 Rixulti Nonformulary. Can Patient Use From Home Or Hold Till Discharge? XX 07/05/24 00:00 [facility] Morphine Sulfate 2 mg 06/05/24 12:22 Morphine Sulfate (*Crx) 2 Mg/Ml Inj IV PUSH Q4H PRN Pain Rated 7-10 Multivitamins Therapeutic 1 tablet 06/06/24 09:00 06/06/24 08:31 Multivitamins Therapeutic Tab (*Bkc) PO 1 tablet DAILY GUY Administration Naloxone HCl 0.1 mg 06/05/24 12:22 Naloxone Hcl 0.4 Mg/Ml Vial IV PUSH Q5MIN PRN Sedation Non-Formulary Medication 0.5 mg 06/06/24 09:00 Brexpiprazole [Rexulti] PO 07/06/24 08:59 DAILY GUY Non-Formulary Medication 1 cap 06/06/24 09:00 Dextromethorphan-Quinidine [Nuedexta] PO 07/06/24 08:59 DAILY GUY Ondansetron HCl 4 mg 06/05/24 07:53 Ondansetron Inj 4 Mg/2 Ml Vial IV PUSH Q4H PRN Nausea Oxybutynin Chloride 5 mg 06/05/24 21:00 06/05/24 20:26 Oxybutynin Chloride 5 Mg Tablet PO 5 mg QHS GUY Administration Pantoprazole Sodium 40 mg 06/06/24 09:00 06/06/24 08:32 Pantoprazole 40 Mg Tablet PO 40 mg QAM GUY Administration Tramadol HCl 50 mg 06/05/24 21:00 06/05/24 20:25 Tramadol Hcl (*Crx) 50 Mg Tablet PO 50 mg QHS GUY Administration Radiology Results: ITS Impressions Chest CT 06/05/24 06:15 Impression: Skin wound and/or sinus tract with soft tissue gas just superficial to the sternum. Correlate with physical exam. No fluid collection or abscess evident. No distinct CT evidence for osteomyelitis. 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 Clear lungs. Cholelithiasis. Labs Labs: Laboratory Results - last 24 hr 06/05/24 06/05/24 06/05/24 16:46 16:56 20:18 WBC RBC Hgb Hct MCV MCH MCHC RDW Plt Count MPV Immature Gran % (Auto) Neut % (Auto) Lymph % (Auto) [place] % (Auto) Eos % (Auto) Baso % (Auto) Lymph # (Auto) [place] # (Auto) Eos # (Auto) Baso # (Auto) Abs Immat Gran (auto) Absolute Neuts (auto) Absolute Nucleated RBC Nucleated RBC % Sodium 137 Potassium 3.8 Chloride 103 Carbon Dioxide 31 H Anion Gap 3 L BUN 7 Creatinine 0.60 L Estim Creat Clear Calc 63 Estimated GFR > 60 Glucose 145 H POC Capillary Glucose 228 H Calcium 9.4 Iron TIBC % Saturation Ferritin Troponin I < 0.012 < 0.012 Vitamin B12 Folate TSH (Reflex) 06/05/24 06/05/24 06/06/24 20:28 23:25 06:49 WBC 5.6 RBC 3.81 L Hgb 11.4 L Hct 36.4 L MCV 95.5 MCH 29.9 MCHC 31.3 L RDW 11.9 Plt Count 212 MPV 11.0 H Immature Gran % (Auto) 0.4 Neut % (Auto) 54.0 Lymph % (Auto) 36.2 [place] % (Auto) 7.8 Eos % (Auto) 1.1 Baso % (Auto) 0.5 Lymph # (Auto) 2.04 [place] # (Auto) 0.4 Eos # (Auto) 0.1 Baso # (Auto) 0.0 Abs Immat Gran (auto) 0.02 Absolute Neuts (auto) 3.1 Absolute Nucleated RBC 0.000 Nucleated RBC % 0.0 Sodium 139 Potassium 4.3 Chloride 103 Carbon Dioxide 32 H Anion Gap 4 BUN 7 Creatinine 0.70 Estim Creat Clear Calc 55 Estimated GFR > 60 Glucose 158 H POC Capillary Glucose 158 H Calcium 9.8 Iron 72 TIBC 261 % Saturation 28 Ferritin 212.00 Troponin I < 0.012 Vitamin B12 403.0 Folate 7.4 TSH (Reflex) 3.120 06/06/24 06/06/24 07:57 11:56 WBC RBC Hgb Hct MCV MCH MCHC RDW Plt Count MPV Immature Gran % (Auto) Neut % (Auto) Lymph % (Auto) [place] % (Auto) Eos % (Auto) Baso % (Auto) Lymph # (Auto) [place] # (Auto) Eos # (Auto) Baso # (Auto) Abs Immat Gran (auto) Absolute Neuts (auto) Absolute Nucleated RBC Nucleated RBC % Sodium Potassium Chloride Carbon Dioxide Anion Gap BUN Creatinine Estim Creat Clear Calc Estimated GFR Glucose POC Capillary Glucose 144 H 202 H Calcium Iron TIBC % Saturation Ferritin Troponin I Vitamin B12 Folate TSH (Reflex)
--- NOTE | 2024-06-06 15:19 | PM.IMPN ---
Progress Note: A&P Assessment and Plan (1) Wound of sternal region: Code(s): S21.109A - Unspecified open wound of unspecified front wall of thorax without penetration into thoracic cavity, initial encounter Status: Acute Assessment and Plan: - did not meet SIRS criteria. Blood cultures obtained in ED, follow. - Chest CT 1. Skin wound and/or sinus tract with soft tissue gas just superficial to the sternum. Correlate with physical exam. No fluid collection or abscess evident. No distinct CT evidence for osteomyelitis. 2. 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 3. Clear lungs. 4. Cholelithiasis. - WBC 7.1, lactic 1.7 - wound culture and fungal culture negative. - Blood cultures NGTD. - Currently on vancomycin since 06/05 - Seen by general surgery and no surgical intervention recommended. - wound RN consulted. - analgesics prn. - WBC wnl. (2) Chest pain: Qualifiers: Chest pain type: unspecified Qualified Code(s): R07.9 - Chest pain, unspecified Code(s): R07.9 - Chest pain, unspecified Status: Acute Assessment and Plan: - Appears resolved. No active chest pain at this time. 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 - chest CT performed, CT read above - EKG, initial: Sinus bradycardia with first-degree AV block, possible anterior CA of indeterminate age, rate 55. - Troponin negative. - No further w/u needed for now. (3) Normocytic anemia: Code(s): D64.9 - Anemia, unspecified Status: Acute Assessment and Plan: - Hgb stable and improving since admission; 10.7>>11.4 - Monitor for now. - transfuse if Hgb<7 (4) Hypokalemia: Code(s): E87.6 - Hypokalemia Status: Acute Assessment and Plan: - Resolved with supplementation. 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 - continue home medications: amlodipine 5 mg daily, hydralazine 50 mg t.i.d., metoprolol 25 mg BID - monitor Plan Diet: Diabetic GI Prophylaxis: Not currently indicated DVT Prophylaxis: Lovenox subQ Lines: Peripheral Code Status: Full code Time Spent With Patient Time with patient: 15 - 25 minutes Subjective Date/time seen: 06/06/24 10:19 Patient states she feels alright and has no pain or other distressful symptoms. Interval history: Patient calm on bedrest and looks to be in no acute distress. Review of Systems Review of Systems: All systems reviewed & are unremarkable except as noted in HPI and below (Patient unreliable historian) Exam Narrative: General: Fair appearing, gen muscle weakness. HEENT:Atraumatic, PERRL, EOM, moist mucosa. NECK: Supple. Lungs: Clear bilaterally. Chest: Mid-sternal chronic wound appears clean and non-infected. Minimal clear drainage on wound. Heart: RRR, no murmurs. Abdomen: Soft, Obese, non-tender, non-distended. Extremities: Acyanotic, no edema. Skin: Warm and dry. Mid-sternal chest wound clean and appears non-infected. Neuro: Fairly well oriented, CN II-XII grossly intact. Psych: Pleasant and co-operative. Objective Data Vital Signs Vital Signs: Vital Signs - 24 hr 06/05/24 16:20 06/05/24 20:00 06/05/24 21:06 Temperature 97.5 F L Pulse Rate 70 57 L Respiratory Rate 20 Blood Pressure 126/52 L Pulse Oximetry 99 Oxygen Delivery Room Air 06/06/24 06:00 06/06/24 08:34 06/06/24 14:00 Temperature 97.8 F 97.2 F L Pulse Rate 49 L 55 L 50 L Respiratory Rate 20 18 Blood Pressure 144/47 H 125/45 L Pulse Oximetry 99 100 Oxygen Delivery Intake/Output Intake/Output: Intake & Output 12/09/24 12/10/24 12/11/24 12/12/24 23:59 23:59 23:59 23:59 Intake Total 2490 1130 Output Total 400 700 Balance 2090 430 Meds/Results Medications: Active Medications Generic Name Dose Route Start Last Admin Trade Name Freq PRN Reason Stop Dose Admin Acetaminophen 650 mg 06/05/24 07:53 Acetaminophen 325 Mg Tablet PO Q4H PRN Mild Pain (1-3) or Fever Hydrocodone Bitart/Acetaminophen 1 tab 06/05/24 12:22 Hydrocodone/Acetaminophen (*Crx) 5-325 Mg Tablet PO Q6H PRN Pain Rated 4-6 Al Hydrox/Mg Hydrox/Simethicone 30 ml 06/05/24 12:49 Mag Hydrox/Al Hydrox/Simeth 30 Ml Udc PO Q6H PRN Indigestion Amlodipine Besylate 5 mg 06/05/24 13:00 06/06/24 08:32 Amlodipine Besylate 5 Mg Tablet PO 5 mg DAILY GUY Administration Aspirin 81 mg 06/06/24 09:00 06/06/24 08:36 Aspirin 81 Mg Enteric Tablet PO 81 mg DAILY GUY Administration Buspirone HCl 15 mg 06/05/24 13:00 06/06/24 12:18 Buspirone Hcl 5 Mg Tablet PO 15 mg TID GUY Administration Dextrose 12.5 gm 06/05/24 12:25 Dextrose 50% 25 Gm/50 Ml Syringe IV PUSH PRN PRN Hypoglycemia Protocol Divalproex Sodium 250 mg 06/05/24 17:00 06/06/24 08:33 Divalproex Sodium Sprinkle 125 Mg Cap.Dr PO 250 mg BID GUY Administration Enoxaparin Sodium 40 mg 06/06/24 09:00 06/06/24 08:26 Enoxaparin 40 Mg/0.4 Ml Syringe SUB-Q 40 mg DAILY GUY Administration Escitalopram Oxalate 20 mg 06/06/24 09:00 06/06/24 08:31 Escitalopram Oxalate 10 Mg Tablet PO 20 mg DAILY GUY Administration Furosemide 20 mg 06/06/24 09:00 06/06/24 08:31 Furosemide 20 Mg Tablet PO 20 mg DAILY GUY Administration Gabapentin 200 mg 06/05/24 12:30 06/06/24 08:33 Gabapentin 100 Mg Capsule PO 200 mg Q12HR GUY Administration Glucagon 1 mg 06/05/24 12:25 Glucagon For Inj 1 Mg Vial IM PRN PRN Hypoglycemia Protocol Glucose 15 gm 06/05/24 12:25 Glucose Oral Gel 15 Gm Of Glucse In 37.5 Gm Tube PO PRN PRN Hypoglycemia Protocol Guaifenesin 100 mg 06/05/24 12:27 Guaifenesin 200 Mg/10 Ml Udc PO Q6H PRN congestion Hydralazine HCl 50 mg 06/05/24 13:00 06/06/24 12:18 Hydralazine Hcl 50 Mg Tablet PO 50 mg TID GUY Administration Vancomycin HCl 1,500 mg in 500 mls @ 250 mls/hr 06/05/24 08:00 06/06/24 10:27 Vancomycin 1,500 Mg/Ns 500 Ml IVPB Infused Q12H GUY Infusion Dextrose 1,000 mls @ 100 mls/hr 06/05/24 12:25 Dextrose 5% 1,000 Ml IVPB PRN PRN Hypoglycemia Protocol Insulin Aspart 2 - 5 units 06/05/24 17:00 06/06/24 12:16 Insulin Aspart (*Bkc) 100 Units/Ml SUB-Q 2 units TIDWM GUY Administration Protocol Insulin Glargine 5 units 06/05/24 21:00 06/05/24 20:26 Insulin Glargine (*Bkc) 100 Units/Ml SUB-Q 5 units HS GUY Administration Lactase 3,000 unit 06/06/24 09:00 06/06/24 08:34 Lactase 3,000 Unit Tablet PO 3,000 unit DAILY GUY Administration Latanoprost 1 drop 06/05/24 14:00 06/06/24 08:35 Latanoprost 0.005% Op Soln 2.5 Ml Btl EACH EYE 1 drop DAILY GUY Administration Levothyroxine Sodium 100 mcg 06/06/24 06:30 06/06/24 06:14 Levothyroxine Sodium 100 Mcg Tablet PO 100 mcg DAILY@0630 GUY Administration Lidocaine HCl 5 ml 06/05/24 12:32 Lidocaine 2% Visc Soln 15 Ml Udc MUCOUS MEM Q1-2H PRN pain Metoprolol Tartrate 25 mg 06/05/24 17:00 06/06/24 08:34 Metoprolol Tartrate 25 Mg Tablet PO 25 mg BID GUY Administration Miscellaneous Information 1 each 06/05/24 00:01 Dextromethorphan-Quinidine [Nuedexta] 20-10 Mg Capsule Nonformulary. Can Patient Use From XX 07/05/24 00:00 [facility] Miscellaneous Information 1 each 06/05/24 00:01 Rixulti Nonformulary. Can Patient Use From Home Or Hold Till Discharge? XX 07/05/24 00:00 [facility] Morphine Sulfate 2 mg 06/05/24 12:22 Morphine Sulfate (*Crx) 2 Mg/Ml Inj IV PUSH Q4H PRN Pain Rated 7-10 Multivitamins Therapeutic 1 tablet 06/06/24 09:00 06/06/24 08:31 Multivitamins Therapeutic Tab (*Bkc) PO 1 tablet DAILY [facility] Administration Naloxone HCl 0.1 mg 06/05/24 12:22 Naloxone Hcl 0.4 Mg/Ml Vial IV PUSH Q5MIN PRN Sedation Non-Formulary Medication 0.5 mg 06/06/24 09:00 Brexpiprazole [Rexulti] PO 07/06/24 08:59 DAILY [facility] Non-Formulary Medication 1 cap 06/06/24 09:00 Dextromethorphan-Quinidine [Nuedexta] PO 07/06/24 08:59 DAILY [facility] Ondansetron HCl 4 mg 06/05/24 07:53 Ondansetron Inj 4 Mg/2 Ml Vial IV PUSH Q4H PRN Nausea Oxybutynin Chloride 5 mg 06/05/24 21:00 06/05/24 20:26 Oxybutynin Chloride 5 Mg Tablet PO 5 mg QHS GUY Administration Pantoprazole Sodium 40 mg 06/06/24 09:00 06/06/24 08:32 Pantoprazole 40 Mg Tablet PO 40 mg QAM GUY Administration Tramadol HCl 50 mg 06/05/24 21:00 06/05/24 20:25 Tramadol Hcl (*Crx) 50 Mg Tablet PO 50 mg QHS GUY Administration Radiology Results: ITS Impressions Chest CT 06/05/24 06:15 Impression: Skin wound and/or sinus tract with soft tissue gas just superficial to the sternum. Correlate with physical exam. No fluid collection or abscess evident. No distinct CT evidence for osteomyelitis. 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 Clear lungs. Cholelithiasis. Labs Labs: Laboratory Results - last 24 hr 06/05/24 06/05/24 06/05/24 16:46 16:56 20:18 WBC RBC Hgb Hct MCV MCH MCHC RDW Plt Count MPV Immature Gran % (Auto) Neut % (Auto) Lymph % (Auto) [place] % (Auto) Eos % (Auto) Baso % (Auto) Lymph # (Auto) [place] # (Auto) Eos # (Auto) Baso # (Auto) Abs Immat Gran (auto) Absolute Neuts (auto) Absolute Nucleated RBC Nucleated RBC % Sodium 137 Potassium 3.8 Chloride 103 Carbon Dioxide 31 H Anion Gap 3 L BUN 7 Creatinine 0.60 L Estim Creat Clear Calc 63 Estimated GFR > 60 Glucose 145 H POC Capillary Glucose 228 H Calcium 9.4 Iron TIBC % Saturation Ferritin Troponin I < 0.012 < 0.012 Vitamin B12 Folate TSH (Reflex) 06/05/24 06/05/24 06/06/24 20:28 23:25 06:49 WBC 5.6 RBC 3.81 L Hgb 11.4 L Hct 36.4 L MCV 95.5 MCH 29.9 MCHC 31.3 L RDW 11.9 Plt Count 212 MPV 11.0 H Immature Gran % (Auto) 0.4 Neut % (Auto) 54.0 Lymph % (Auto) 36.2 [place] % (Auto) 7.8 Eos % (Auto) 1.1 Baso % (Auto) 0.5 Lymph # (Auto) 2.04 [place] # (Auto) 0.4 Eos # (Auto) 0.1 Baso # (Auto) 0.0 Abs Immat Gran (auto) 0.02 Absolute Neuts (auto) 3.1 Absolute Nucleated RBC 0.000 Nucleated RBC % 0.0 Sodium 139 Potassium 4.3 Chloride 103 Carbon Dioxide 32 H Anion Gap 4 BUN 7 Creatinine 0.70 Estim Creat Clear Calc 55 Estimated GFR > 60 Glucose 158 H POC Capillary Glucose 158 H Calcium 9.8 Iron 72 TIBC 261 % Saturation 28 Ferritin 212.00 Troponin I < 0.012 Vitamin B12 403.0 Folate 7.4 TSH (Reflex) 3.120 06/06/24 06/06/24 07:57 11:56 WBC RBC Hgb Hct MCV MCH MCHC RDW Plt Count MPV Immature Gran % (Auto) Neut % (Auto) Lymph % (Auto) [place] % (Auto) Eos % (Auto) Baso % (Auto) Lymph # (Auto) [place] # (Auto) Eos # (Auto) Baso # (Auto) Abs Immat Gran (auto) Absolute Neuts (auto) Absolute Nucleated RBC Nucleated RBC % Sodium Potassium Chloride Carbon Dioxide Anion Gap BUN Creatinine Estim Creat Clear Calc Estimated GFR Glucose POC Capillary Glucose 144 H 202 H Calcium Iron TIBC % Saturation Ferritin Troponin I Vitamin B12 Folate TSH (Reflex) Quality VTE Prophylaxis VTE prophylaxis: pharmacologic ordered Hospitalist MIPS Advance Care Plan I have confirmed that the patient's Advanced Care Plan is present, code status is documented, or surrogate decision maker is listed in patient medical record.: Yes Medication Reconciliation I have utilized all available resources to obtain, update and review the patients current medications (includes all prescriptions, OTC, herbals, cannabis, and nutritional supplements).: Yes
[2024-06-06 16:32] LABS: Glucose Point of Care 159 mg/dl (65-105)
[2024-06-06 16:48] VITALS: PULSE 52
[2024-06-06 20:27] LABS: Vancomycin Trough 19.4 ug/mL (10.0-20.0)
[2024-06-06 21:20] LABS: Glucose Point of Care 193 mg/dl (65-105)
[2024-06-06 22:00] VITALS: BP 135/47; PULSE 52; RESP 14; TEMP 36.7; O2SAT 100
[2024-06-06] MEDS: oxyBUTYnin CHLORIDE 5 MG TABLET PO (22:36)
[2024-06-06] MEDS: traMADol HCL (*CRX) 50 MG TABLET PO (22:36)
[2024-06-06] MEDS: INSULIN GLARGINE (*BKC) 100 UNITS/ML SUB-Q (22:48)
[2024-06-07 05:48] VITALS: BP 149/58; PULSE 54; RESP 18; TEMP 37.1; O2SAT 98
[2024-06-07] MEDS: LEVOTHYROXINE SODIUM 100 MCG TABLET PO (05:51)
[2024-06-07 06:27] LABS: Estimated CRCL calculation 48 ml/min; Estimated Glomerular Filt Rate > 60
[2024-06-07 07:51] LABS: Glucose Point of Care 141 mg/dl (65-105)
[2024-06-07] MEDS: ASPIRIN 81 MG ENTERIC TABLET PO (09:26)
[2024-06-07] MEDS: LACTASE 3,000 UNIT TABLET 3000 UNIT PO (09:27)
[2024-06-07] MEDS: FUROSEMIDE 20 MG TABLET PO (09:27)
[2024-06-07] MEDS: ESCITALOPRAM OXALATE 10 MG TABLET 20 MG PO (09:27)
[2024-06-07] MEDS: MULTIVITAMINS THERAPEUTIC TAB (*BKC) 1 TABLET PO (09:27)
[2024-06-07] MEDS: busPIRone HCL 5 MG TABLET 15 MG PO ×2 (09:29→12:52)
[2024-06-07 09:30] VITALS: PULSE 58
[2024-06-07] MEDS: METOPROLOL TARTRATE 25 MG TABLET PO (09:30)
[2024-06-07] MEDS: amLODIPine BESYLATE 5 MG TABLET PO (09:30)
[2024-06-07] MEDS: hydrALAZINE HCL 50 MG TABLET PO ×2 (09:31→12:52)
[2024-06-07] MEDS: PANTOPRAZOLE 40 MG TABLET PO (09:31)
[2024-06-07] MEDS: GABAPENTIN 100 MG CAPSULE 200 MG PO (09:31)
[2024-06-07] MEDS: DIVALPROEX SODIUM SPRINKLE 125 MG CAP.DR 250 MG PO (09:31)
[2024-06-07] MEDS: ENOXAPARIN 40 MG/0.4 ML SYRINGE SUB-Q (09:34)
[2024-06-07] MEDS: LATANOPROST 0.005% OP SOLN 2.5 ML BTL 1 DROP EACH EYE (09:35)
--- NOTE | 2024-06-07 10:49 | P.DS_ITS ---
DS: Admitting Diagnosis Discharge Date 06/17/24 Admitting Diagnosis Chest Discomfort DS: Discharge Diagnosis Discharge Diagnosis (1) Wound of sternal region: Code(s): S21.109A - Unspecified open wound of unspecified front wall of thorax without penetration into thoracic cavity, initial encounter Status: Acute Assessment and Plan: - did not meet SIRS criteria. Blood cultures obtained in ED negative. - Chest CT 1. Skin wound and/or sinus tract with soft tissue gas just superficial to the sternum. Correlate with physical exam. No fluid collection or abscess evident. No distinct CT evidence for osteomyelitis. 2. 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 3. Clear lungs. 4. Cholelithiasis. - WBC 7.1, lactic 1.7 - wound culture and fungal culture negative. - Blood cultures NGTD. - Patient was on vancomycin since 06/05 but we'll d/c with negative wound cultures. - WBC wnl. - Seen by general surgery and no surgical intervention recommended. - analgesics prn. (2) Chest pain: Qualifiers: Chest pain type: unspecified Qualified Code(s): R07.9 - Chest pain, unspecified Code(s): R07.9 - Chest pain, unspecified Status: Acute Assessment and Plan: - Appears resolved. No active chest pain at this time. 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 - chest CT negative for abcess. - EKG, initial: Sinus bradycardia with first-degree AV block, possible anterior NE of indeterminate age, rate 55. - Troponin negative. - No further w/u needed for now. (3) Normocytic anemia: Code(s): D64.9 - Anemia, unspecified Status: Acute Assessment and Plan: - Hgb stable and improved since admission; 10.7>>11.4 - Monitor for now. (4) Hypokalemia: Code(s): E87.6 - Hypokalemia Status: Acute Assessment and Plan: - Resolved with supplementation. (5) DM2 (diabetes mellitus, type 2): Qualifiers: Diabetes mellitus complication status: without complication Diabetes mellitus extermination inspector insulin use: with [facility] use Qualified Code(s): E11.9 - Type 2 diabetes mellitus without complications; Z79.4 - jail (current) use of insulin Code(s): E11.9 - Type 2 diabetes mellitus without complications Status: Chronic Assessment and Plan: - hypoglycemia protocol - POC blood glucose ACHS - home medication: Lantus 5u HS - correct regimen ordered - low dose TIDWM, - A1C 7.0 on 06/05/2024 (6) Essential (primary) hypertension: Code(s): I10 - Essential (primary) hypertension Status: Chronic Assessment and Plan: - Currently trending wnl. - continue home medications: amlodipine 5 mg daily, hydralazine 50 mg t.i.d., metoprolol 25 mg BID - monitor Plan Discharge to SNF Code Status: Full code DS: Summary Hospital Course Reason for hospitalization: Chest Discomfort Hospital Course: Patient presented to the hospital from the long-term that she resides with reports of chest discomfort. 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 Her chest discomfort resolved briefly after presentation, with the patient having negative Troponin X3 and EKG with no acute ischemic changes. Her symptoms were suspected to be likely secondary to her chronic chest wound. CT chest done did not reveal any abscess, and the wound ap peared clean and non-infected. She was seen by general surgery and no surgical interventions were recommended. Her WBC's and lactate have been wnl, and with no signs or symptoms of wound infection, antibiotics have been discontinued. Patient is medically stable for transfer back to her long-term, with no signs or symptoms of acute distress noted. All her other chronic conditions remained stable inpatient. Status at Discharge Functional status at discharge: bed bound Overall status at discharge: patient is back to baseline Time Spent with Patient Time attestation: Total time spent providing and/or coordinating discharge services: Time spent: Greater than 30 minutes Exam Narrative: General: Fair appearing, gen muscle weakness. HEENT:Atraumatic, PERRL, EOM, moist mucosa. NECK: Supple. Lungs: Clear bilaterally. Chest: Mid-sternal chronic wound appears clean and non-infected. Minimal clear drainage on wound. Heart: RRR, no murmurs. Abdomen: Soft, Obese, non-tender, non-distended. Extremities: Acyanotic, no edema. Skin: Warm and dry. Mid-sternal chest wound clean and appears non-infected. Neuro: Fairly well oriented, CN II-XII grossly intact. Psych: Pleasant and co-operative. DS: Data Data Completed and Pending Labs on day of discharge: Labs from last 24 hours 06/07/24 06/07/24 06/06/24 07:44 06:10 21:02 Creatinine 0.80 Estim Creat Clear Calc 48 Estimated GFR > 60 POC Capillary Glucose 141 H 193 H Vancomycin Trough 06/06/24 06/06/24 06/06/24 18:57 16:30 11:56 Creatinine Estim Creat Clear Calc Estimated GFR POC Capillary Glucose 159 H 202 H Vancomycin Trough 19.4 Preliminary micro results at discharge 06/05/24 04:01 Fungal Culture - Preliminary Other 06/05/24 04:01 Blood Culture - Preliminary Blood 06/05/24 04:01 Blood Culture - Preliminary Blood Discharge Plan Discharge Attending physician on discharge: Elza Serna Consulting providers: Jeffrey Mane Discharging Clinician: Thomas Heath Anticipated Discharge Date/Time: 06/07/24 11:05 Patient Disposition: SNF Activity: as tolerated Diet: heart healthy and diabetic Discharge Instructions: * Wound care for chest wound: Change dressing daily. Remove packing, then lift both breasts to see the wound bed well and pack the entire wound with silver rope and cover with a gauze cover dressing or Mepilex. Patient Language: Hungarian Stand Alone Forms: General Discharge Information Follow-up/Referrals: Bk,MD Betito [Primary Care Provider] - 1 Week Discharge Medications: Continued amlodipine 5 mg tablet 5 mg PO DAILY acetaminophen 325 mg capsule 325 mg PO Q4H PRN (Reason: fever or pain) buspirone 15 mg tablet 15 mg PO TID aspirin [Adult Aspirin Regimen] 81 mg tablet,delayed release (DR/EC) 81 mg PO DAILY multivitamin [Daily Multi-Vitamin] Tablet 1 tablet PO DAILY omeprazole 20 mg capsule,delayed release(DR/EC) 20 mg PO DAILY divalproex 125 mg capsule, delayed rel sprinkle 250 mg PO BID escitalopram oxalate 20 mg tablet 20 mg PO DAILY furosemide 20 mg tablet 20 mg PO DAILY gabapentin 100 mg capsule 200 mg PO Q12H hydralazine 50 mg tablet 50 mg PO TID lactase [Dairy Relief] 3,000 unit tablet 3,000 unit PO DAILY Rx Instructions: administer with meals and/or snacks latanoprost 0.005 % drops 1 drp EACH EYE DAILY insulin glargine-yfgn 100 unit/mL solution 5 unit SUBCUT QPM insulin lispro 100 unit/mL insulin pen See Protocol SUBCUT QID Protocol: Insulin Corrective Low-Dose Condition: glucose < 70 mg/dl Dose/Route: Follow Hypoglycemia Order Condition: glucose 70-200 mg/dl Dose/Route: No additional insulin Condition: glucose 201-250 mg/dl Dose/Route: 2 units sub-Q Condition: glucose 251-300 mg/dl Dose/Route: 3 units sub-Q Condition: glucose 301-350 mg/dl Dose/Route: 4 units sub-Q Condition: glucose 351-400 mg/dl Dose/Route: 5 units sub-Q Condition: glucose > 400 mg/dl Dose/Route: Call MD Protocol Text: *No Correction Dose at Bedtime* levothyroxine 100 mcg tablet 100 mcg PO QAM lidocaine HCl [Lidocaine Viscous] 2 % solution 5 ml mucous membrane Q1-2H PRN (Reason: pain) Rx Instructions: swish and spit metoprolol tartrate 25 mg tablet 25 mg PO BID Mylanta Coat-Cool 1,200 mg-270 mg -80 mg/10 mL suspension 30 ml PO Q6H PRN (Reason: indigestion) Nuedexta 20-10 mg capsule 1 cap PO DAILY ondansetron 4 mg tablet,disintegrating 4 mg PO Q6H PRN (Reason: nausea and vomiting) oxybutynin chloride 5 mg tablet 5 mg PO QHS Rexulti 0.5 mg tablet 0.5 mg PO DAILY tramadol 50 mg tablet 50 mg PO QHS guaifenesin [Adult Tussin Chest Congestion] 100 mg/5 mL liquid 100 mg PO Q6H PRN (Reason: congestion) amoxicillin 500 mg tablet 500 mg PO Q8H Patient Comments: Tooth Extraction - take until 06/11/24 Date of admission: 06/05/24 07:53 Primary Care Provider: BkBetito Admitting Provider: Elza Serna Attending physician on admission: Elza Serna Condition: Guarded Prognosis
[2024-06-07 11:21] LABS: Glucose Point of Care 219 mg/dl (65-105)
[2024-06-07] MEDS: INSULIN ASPART (*BKC) 100 UNITS/ML SUB-Q (12:52)
[2024-06-07 14:00] VITALS: BP 98/46; PULSE 52; RESP 18; TEMP 36.1; O2SAT 98
[2024-06-07 16:30] LABS: Glucose Point of Care 121 mg/dl (65-105)
[2024-06-07 16:49] VITALS: BP 113/88; PULSE 50
== END 2024-06-07 18:11 ==
LOC: ANHED 08:38 → ANH3MEDSUR 09:10
PROVIDERS: Student in an Organized Health Care Education/Training Program; Admitting Provider Internal Medicine; Emergency Provider Student in an Organized Health Care Education/Training Program; PCP Internal Medicine; Visit Provider Internal Medicine
DX: R07.89 Other chest pain (principal); S21.109A Unspecified open wound of unspecified front wall of thorax without penetration into thoracic cavity, initial encounter; X58.XXXA Exposure to other specified factors, initial encounter; D64.9 Anemia, unspecified; E87.6 Hypokalemia; E11.9 Type 2 diabetes mellitus without complications; I10 Essential (primary) hypertension; F03.90 Unspecified dementia, unspecified severity, without behavioral disturbance, psychotic disturbance, mood disturbance, and anxiety; E03.9 Hypothyroidism, unspecified; I27.20 Pulmonary hypertension, unspecified; I25.10 Atherosclerotic heart disease of native coronary artery without angina pectoris; I25.2 Old myocardial infarction; E78.5 Hyperlipidemia, unspecified; M19.90 Unspecified osteoarthritis, unspecified site; H40.9 Unspecified glaucoma; R32 Unspecified urinary incontinence; Z74.01 Bed confinement status; Z79.2 Long term (current) use of antibiotics; Z79.4 Long term (current) use of insulin; Z79.82 Long term (current) use of aspirin; Z79.899 Other long term (current) drug therapy; Z95.1 Presence of aortocoronary bypass graft
CPT/HCPCS: 36415; 71260; 80048; 80053; 80202; 82565; 82607; 82728; 82746; 82948; 83036; 83540; 83550; 83605; 83735; 84443; 84484; 85025; 87040; 87070; 87102; 87205; 87206; 93005; 96365; 96366; 96367; 96372; 96375; 99213; 99285; A9270; G0378; G0463; J1650; J1815; J2270; J3370; J3480; J7030; Q9967